=== PATIENT | male | born 1965 | race Caucasian/White ===

== ENCOUNTER 2025-03-10 11:57 | Emergency (ER) | payer BC ==
[~2025-03-10] VITALS: Ht 180.3 cm; Wt 79.4 kg
[2025-03-10] MEDS: IV NS 0.9% 1,000 ML BAG IV ONE (12:46)
[2025-03-10 12:49] LABS: BASOPHILS # (AUTO) 0.1 K/uL (0.0-0.2); BASOPHILS % (AUTO) 1.2 % (0.0-2.0); EOSINOPHILS % (AUTO) 0.6 % (0.0-6.0); HEMATOCRIT 49 % (39-51); LYMPHOCYTES # (AUTO) 1.4 K/uL (0.8-4.8); LYMPHOCYTES % (AUTO) 17.6 % (20.0-44.0); MEAN CORPUSCULAR HEMOGLOBIN 32 PG (26.0-33.0); MEAN CORPUSCULAR HGB CONC 35 g/dl (31.0-36.0); MEAN CORPUSCULAR VOLUME 91 fL (80-96); MONOCYTES # (AUTO) 0.6 K/uL (0.1-1.30); MONOCYTES % (AUTO) 7.1 % (2.0-12.0); NEUTROPHILS # (AUTO) 5.9 K/uL (1.8-8.9); NEUTROPHILS % (AUTO) 73.5 % (43.0-81.0); PLATELET COUNT (AUTO) 221 K/uL (150-450); RED BLOOD CELL COUNT(AUTO) 5.33 MIL/uL (4.5-6.0); RED CELL DISTRIBUTION WIDTH 13.7 % (11.5-15.0)
[2025-03-10 13:01] LABS: CARBON DIOXIDE 27 mmol/L (21-32); CHLORIDE 104 mmol/L (98-107); CREATININE 1.2 mg/dL (0.6-1.3); GLUCOSE 128 mg/dL (74-106); POTASSIUM 4.2 mmol/L (3.5-5.1); SODIUM SERUM 139 mmol/L (136-145); UREA NITROGEN, BLOOD 25 mg/dL (7-18)
[2025-03-10 13:31] VITALS: BP 123/83; TEMP 98.2; O2SAT 97
[2025-03-10 13:31] LABS: THYROID STIMULATING HORMONE 0.34 uIU/mL (0.358-3.74)
== END 2025-03-10 13:34 | disposition home or self-care (01) ==
LOC: ER 12:00
DX: I47.10 Supraventricular tachycardia, unspecified (principal); I10 Essential (primary) hypertension
CPT/HCPCS: 99284; 96360; 93005 ×2; 85025; 80048; 36415; 84439; 84443; 84484; J7030